=== PATIENT | male | born 1940 | race Caucasian/White ===

== ENCOUNTER → 2020-01-12 | Outpatient (CLI) | payer OTHER ==
[~2020-01-12] MED LIST: ACETAMINOPHEN-1 EAC1 PO; ARICEPT 5 MG TAB5 MG PO; ARICEPT10 M1 PO; ARICEPT10 MG PO; ASPIR 8181 MG PO; ASPIR-TRIN325 MG PO; ASPIRIN325 PO; ATORVASTATIN CA10 MG PO; ATORVASTATIN CA40 MG PO; BENICAR HCT 201 EACH PO; BLUE EMU; BYSTOLIC10 MG PO; CALCIUM 500 +1 EAC5 PO; CALCIUM 600 +1 EAC2 PO; CALCIUM 600 +1 EAC5 PO; CARBIDOPA-LEVO1 EAC6 PO; COLACE100 MG PO; DEPAKENE250 MG PO; DILTIAZEM 24HR240 MG PO; EFFEXOR XR75 MG PO; EFFEXOR75 MG PO; FISH OIL + VIT1 EACH PO; FISH OIL 1,001000 M2 PO; FOLIC ACID PO; KEPPRA XR750 MG PO; KEPPRA750 MG; LIPITOR 10 MG10 M1 PO; LOSARTAN-HCTZ1 EACH PO; MAGNESIUM400 MG PO; MEN'S ONE DAIL1 EAC1 PO; NIASPAN ER 101000 M1 PO; OMEPRAZOLE 20 M20 M1 PO; OMEPRAZOLE20 M2 PO; PERCOCET PO; POTASSIUM20 PO; PROTONIX40 M1 PO; SIMVASTATIN40 MG PO; SINEMET CR 50/21 TAB PO; TOPROL XL25 MG PO; TRAMADOL 50 MG50 MG PO; VENLAFAXIN75 MG/1 T2 PO; VITAMIN D-32000 UNIT PO; ZOCOR20 MG PO; ZPAK PO
== END ==
LOC: SJCVC 13:18
DX: I25.10 Atherosclerotic heart disease of native coronary artery without angina pectoris (principal); I10 Essential (primary) hypertension; E78.00 Pure hypercholesterolemia, unspecified; G20 Parkinson's disease; K21.9 Gastro-esophageal reflux disease without esophagitis; G47.33 Obstructive sleep apnea (adult) (pediatric); Z90.49 Acquired absence of other specified parts of digestive tract; Z79.899 Other long term (current) drug therapy; Z87.891 Personal history of nicotine dependence